=== PATIENT | female | born 1980 | race Caucasian/White ===

== ENCOUNTER 2017-05-12 13:16 | Outpatient (CLI) | payer OTHER ==
[2017-05-12 13:55] LABS: Hemoglobin 13.7 g/dL (12.0-16.0); Mean Corpuscular HGB CONC 31.8 g/dL (32.0-36.0); Mean Corpuscular Hemoglobin 28.4 pg (27.0-31.0); Mean Corpuscular Volume 89.2 fl (81.0-99.0); Mean Platelet Volume 9.5 fL (7.4-10.4); Platelet Count 187 thou/uL (130-400); RBC Distribution Width 12.5 % (11.5-14.5); Red Blood Cell (RBC) Count 4.81 mill/uL (4.20-5.40); White Blood Cell (WBC) Count 6.3 thou/uL (4.8-10.8)
[2017-05-12 14:14] LABS: ALT (SGPT) 14 U/L (8-55); AST (SGOT) 14 U/L (5-34); Albumin 4.3 g/dL (3.5-5.0); Alkaline Phosphatase 79 U/L (40-150); Anion Gap 15 mmol/L (10-20); BUN (Urea Nitrogen) 15 mg/dL (7.0-18.7); Bilirubin, Direct 0.3 mg/dL (0.1-0.3); Bilirubin, Total 0.7 mg/dL (0.2-1.2); Calc. Creatinine Clearance 0 mL/min (70-130); Calcium 9.4 mg/dL (7.8-10.44); Carbon Dioxide 24 mmol/L (22-29); Cardiac Risk 2.8 (Less than 4.5); Chloride 105 mmol/L (98-107); Cholesterol 140 mg/dl (< 200 Desired); Estimated GFR-MDRD 85; Globulin 2.3 g/dL (2.4-3.5); Glucose 61 mg/dL (70-105); HDL Cholesterol 50 mg/dL (>60 Neg Risk); LDL Cholesterol, Calculated 79 mg/dL; Potassium 4.1 mmol/L (3.5-5.1); Protein, Total 6.6 g/dL (6.0-8.3); Sodium 140 mmol/L (136-145); Triglycerides 53 mg/dL (Less than 150)
[2017-05-12 17:51] LABS: Thyroid Stimulating Hormone 3.3765 uIU/mL (0.35-4.94); Vitamin D, 25 Hydroxy 44.3 ng/ml (> 30.0)
[2017-05-13 17:44] LABS: Folate (Folic Acid) 9.4 ng/mL (7.0-31.4)
== END 2017-05-12 13:17 | disposition home or self-care (01) ==
LOC: NAVSJIPCSP 13:16
PROVIDERS: ATTEND Surgery
DX: E56.9 Vitamin deficiency, unspecified (principal)
CPT/HCPCS: 36415; 80053; 80061; 82248; 82306; 82607; 82746; 84425; 84443; 85027